=== PATIENT | female | born 1950 | race Caucasian/White ===

== ENCOUNTER 2018-01-10 06:50 | Day surgery (SDC) | payer MEDICARE ==
[2018-01-08 09:51] LABS: BASOPHILS % (AUTO) 0.7 % (0-1); EOSINOPHILS # (AUTO) 0.2 X10'3 (0-0.9); EOSINOPHILS % (AUTO) 2.6 % (0-6); HEMATOCRIT 42.9 % (35.0-45.0); HEMOGLOBIN 14.4 g/dl (12.0-16.0); LYMPHOCYTES % (AUTO) 31.2 % (21-51); MEAN CORPUSCULAR HEMOGLOBIN 29.3 PG (27.0-31.0); MEAN CORPUSCULAR HGB CONC 33.4 % (33.0-36.5); MEAN CORPUSCULAR VOLUME 87.7 FL (78-98); MEAN PLATELET VOLUME 8.2 FL (7.4-10.4); MONOCYTES # (AUTO) 0.5 X10'3 (0-0.9); NEUTROPHILS # (AUTO) 3.7 X10'3 (1.8-7.7); NEUTROPHILS % (AUTO) 57.5 % (42-75); PLATELET COUNT 318 X10'3 (140-440); RED CELL DISTRIBUTION WIDTH 13.6 % (11.5-14.5); WHITE BLOOD COUNT 6.5 X10'3 (4.5-11.0)
[2018-01-08 10:01] LABS: PARTIAL THROMBOPLASTIN TIME 29 SECONDS (22-32); PROTHROMBIN TIME 10.2 SECONDS (9.0-12.0)
[2018-01-08 10:24] LABS: ALANINE AMINOTRANSFERASE 23 U/L (12-78); ALBUMIN 3.8 G/DL (3.4-5.0); ALBUMIN/GLOBULIN RATIO 1.1 (1.1-1.5); ALKALINE PHOSPHATASE 108 IU/L (46-116); ANION GAP 10 (8-16); ASPARTATE AMINO TRANSFERASE 18 U/L (10-37); BILIRUBIN,TOTAL 0.4 MG/DL (0.1-1.0); BLOOD UREA NITROGEN 19 MG/DL (7-18); BUN/CREATININE RATIO 22.1 (6.6-38.0); CALCIUM 9.3 MG/DL (8.5-10.1); CHLORIDE 105 MMOL/L (99-107); CREATININE 0.86 MG/DL (0.40-0.90); GLUCOSE 103 MG/DL (70-104); POTASSIUM 3.6 MMOL/L (3.5-5.1); SODIUM 144 MMOL/L (135-145); TOTAL CARBON DIOXIDE 28.8 MMOL/L (24-32); TOTAL PROTEIN 7.4 G/DL (6.4-8.2); eGFR 66 ML/MIN
[2018-01-10] VITALS (12 sets, daily range): BP systolic 104–136; BP diastolic 57–80
[~2018-01-10] VITALS: Ht 165.1 cm; Wt 69.6 kg
[2018-01-10] MEDS ORDERED: nitroGLYCERIN 0.4mg SUBLingual tab SL PRN (07:10)
[2018-01-10] MEDS ORDERED: LORazepam 0.5 MG tablet PO PRN (07:15)
[2018-01-10] MEDS ORDERED: methylPREDNISolone sod succ 125mg/2ml vial IV ONE (07:15)
[2018-01-10] MEDS ORDERED: diphenhydrAMINE 25mg capsule PO PRN (07:15)
[2018-01-10] MEDS ORDERED: normal saline 1000ml 1,000 ML IV SCH (07:15)
[2018-01-10] MEDS ORDERED: MELO-102 PO (07:55)
[2018-01-10] MEDS ORDERED: VALS1TAB73 PO (07:55)
[2018-01-10] MEDS ORDERED: BUPR300T54 PO (07:55)
[2018-01-10] MEDS ORDERED: VALA100027 PO (07:55)
[2018-01-10] MEDS ORDERED: SIMV10TA2 PO (07:55)
[2018-01-10] MEDS ORDERED: PANT-47 PO (07:55)
[2018-01-10] MEDS ORDERED: TRAM50TA2 PO (07:55)
[2018-01-10] MEDS ORDERED: FEXO180T94 PO (08:01)
[2018-01-10] MEDS ORDERED: BIFI4CAP PO (08:01)
[2018-01-10] MEDS ORDERED: NITR0.4T51 SL (08:01)
[2018-01-10] MEDS ORDERED: FISH1CAP15 PO (08:01)
[2018-01-10] MEDS ORDERED: CHOL10002 PO (08:01)
[2018-01-10] MEDS ORDERED: NAPR220T67 PO (08:01)
[2018-01-10] MEDS ORDERED: MAGN500C16 PO (08:01)
[2018-01-10] MEDS ORDERED: MULT-190 PO (08:01)
[2018-01-10] MEDS ORDERED: heparin 1,000 UNITS/NS 500ml 500 ML ONE (09:29)
[2018-01-10] MEDS ORDERED: iohexol 350MG/ML 100ml bottle IV ONE (09:29)
[2018-01-10] MEDS ORDERED: iohexol 350 MG/ML 50ML vial IV ONE (09:29)
[2018-01-10] MEDS ORDERED: PRED5TAB PO (09:31)
[2018-01-10] MEDS ORDERED: midazolam 2 mg/2 ml injection ONE (09:57)
[2018-01-10] MEDS ORDERED: fentaNYL/PF 50MCG/1 ML 2ML syringe ONE (09:57)
[2018-01-10] MEDS ORDERED: LIDOcaine 1% 30ml preserv. free vial ONE (10:02)
== END 2018-01-10 16:50 | disposition home or self-care (01) ==
LOC: SSTAY O 06:50
PROVIDERS: ATTEND Internal Medicine Cardiovascular Disease
DX: I25.10 Atherosclerotic heart disease of native coronary artery without angina pectoris (principal); K21.9 Gastro-esophageal reflux disease without esophagitis; I10 Essential (primary) hypertension; E78.5 Hyperlipidemia, unspecified; F32.9 Major depressive disorder, single episode, unspecified; F41.9 Anxiety disorder, unspecified; Z90.710 Acquired absence of both cervix and uterus; Z91.013 Allergy to seafood; Z88.3 Allergy status to other anti-infective agents; Z91.048 Other nonmedicinal substance allergy status; Z98.890 Other specified postprocedural states; Z79.899 Other long term (current) drug therapy
CPT/HCPCS: 36415; 71046; 80053; 85025; 85610; 85730; 93005; 93458; 99152; 99153; A6257; C1760; C1769; J1644; J2250; J2930; J3010; J3490; J7030; Q0163; Q9967; A4620